=== PATIENT | female | born 1945 | race Caucasian/White ===

== ENCOUNTER 2016-06-04 07:08 | Emergency (ER) | payer MEDICARE ==
[~2016-06-04] VITALS: Ht 167.6 cm; Wt 63.5 kg
[2016-06-04 07:08] VITALS: BP 126/79; PULSE 90; RESP 19; TEMP 97.3; O2SAT 92
[2016-06-04] MEDS ORDERED: NACL 0.9% 1,000 ML IV ONE (07:15)
[2016-06-04] MEDS ORDERED: CALC260T7 PO (07:28)
[2016-06-04] MEDS ORDERED: DIVA500T7 PO (07:28)
[2016-06-04] MEDS ORDERED: LIPA1CAP13 PO (07:28)
[2016-06-04] MEDS ORDERED: CLON2TAB4 PO (07:28)
[2016-06-04] MEDS ORDERED: LEVO75TA7 PO (07:28)
[2016-06-04] MEDS ORDERED: CYAN100067 PO (07:28)
[2016-06-04] MEDS ORDERED: GABA-531 PO (07:28)
[2016-06-04] MEDS ORDERED: ALEN10TA6 PO (07:28)
[2016-06-04] MEDS ORDERED: SER100 PO (07:28)
[2016-06-04] MEDS ORDERED: RIFA550T5 PO (07:33)
[2016-06-04 08:02] LABS: BASOPHILS # (AUTO) 0.4 K/uL (0.0-0.2); BASOPHILS % (AUTO) 4.8 % (0.0-2.0); EOSINOPHILS % (AUTO) 0.3 % (0.0-4.0); HEMATOCRIT 44.3 % (36-48); HEMOGLOBIN 14.7 g/dL (12.0-16.0); LYMPHOCYTES # (AUTO) 1.5 K/uL (1.0-5.5); LYMPHOCYTES % (AUTO) 19.4 % (20.5-51.5); MEAN CORPUSCULAR HEMOGLOBIN 29 pg (27-31); MEAN CORPUSCULAR HGB CONC 33 % (32-36); MEAN CORPUSCULAR VOLUME 89 fL (79.0-98.0); MONOCYTES # (AUTO) 1.3 K/uL (0.0-1.0); MONOCYTES % (AUTO) 16.2 % (1.7-9.3); NEUTROPHILS # (AUTO) 4.6 K/uL (1.8-7.7); NEUTROPHILS % (AUTO) 59.3 % (40.0-70.0); PLATELET COUNT (AUTO) 132 K/uL (130-430); RED CELL DISTRIBUTION WIDTH 14.4 % (9.0-15.0); WHITE BLOOD COUNT (AUTO) 7.8 K/uL (4.8-10.8)
[2016-06-04 08:07] LABS: CALCIUM 9.3 mg/dL (8.4-11.0); CREATININE 0.95 mg/dL (0.55-1.30); POTASSIUM 4.1 mmol/L (3.5-5.1)
[2016-06-04 08:11] LABS: PROTHROMBIN TIME 10.8 SECS (9.5-12.5)
[2016-06-04 08:12] LABS: ALBUMIN 3.7 g/dL (3.4-4.8); TOTAL BILIRUBIN 0.3 mg/dL (0.0-1.0); TOTAL PROTEIN, SERUM 7.2 g/dL (6.4-8.3)
[2016-06-04 08:27] LABS: BILIRUBIN,URINE NEGATIVE (NEGATIVE); BLOOD, URINE NEGATIVE (NEGATIVE); CLARITY/URINE CLEAR (CLEAR); COLOR,URINE YELLOW (YELLOW); GLUCOSE,URINE NEGATIVE (NEGATIVE); KETONES,URINE 1+ (NEGATIVE); LEUKOCYTE ESTERASE ,URINE NEGATIVE (NEGATIVE); NITRITE, URINE NEGATIVE (NEGATIVE); PROTEIN URINE NEGATIVE (NEGATIVE); UROBILINOGEN,URINE 0.2 (0.2-1.0)
[2016-06-04 08:45] LABS: BARBITURATE, URINE NEGATIVE (NEG <=200); BENZODIAZEPINE, URINE POSITIVE (NEG <=150); CANNABINOID, URINE NEGATIVE (NEG <=50); COCAINE, URINE NEGATIVE (NEG <=150); METHAMPHETAMINES SCREEN,URINE NEGATIVE (NEG <=500); OPIATE, URINE NEGATIVE (NEG <=100); PHENCYCLIDINE SCREEN,URINE NEGATIVE (NEG <=25); UR TRICYCLIC ANTIDEPRESSANTS NEGATIVE (NEG <=300); URINE AMPHETAMINE NEGATIVE (NEG <=500); URINE METHADONE NEGATIVE (NEG <=200); URINE OXYCODONE SCREEN NEGATIVE (NEG <=100); URINE PROPOXYPHENE SCREEN NEGATIVE (NEG <=300)
[2016-06-04] MEDS ORDERED: DEXTROSE 50% JECT 50 ML DISP.SYRIN IVP ONE (09:45)
[2016-06-04] MEDS ORDERED: D5/0.45 NS 1,000 ML IV ONE (10:00)
[2016-06-04 11:10] VITALS: BP 119/64; PULSE 88; RESP 14; TEMP 97.1; O2SAT 100
== END 2016-06-04 11:10 | disposition short-term general hospital (02) ==
LOC: SED 07:08
DX: T42.4X1A Poisoning by benzodiazepines, accidental (unintentional), initial encounter (principal); T42.6X1A Poisoning by other antiepileptic and sedative-hypnotic drugs, accidental (unintentional), initial encounter; T43.591A Poisoning by other antipsychotics and neuroleptics, accidental (unintentional), initial encounter; R41.82 Altered mental status, unspecified; Z88.6 Allergy status to analgesic agent; Z88.5 Allergy status to narcotic agent; Z88.8 Allergy status to other drugs, medicaments and biological substances; Y92.89 Other specified places as the place of occurrence of the external cause
CPT/HCPCS: 36415; 51702; 70450; 71010; 80053; 80307; 81003; 82962; 84484; 85025; 85610; 85730; 93005; 96361; 96374; 99285; J7030

== ENCOUNTER 2016-06-08 00:14 | Emergency (ER) | payer MEDICARE ==
[~2016-06-08] VITALS: Ht 165.1 cm; Wt 59.0 kg
[~2016-06-08 00:14] MED LIST: ALEN10TA6 PO; CALC260T7 PO; CLON2TAB4 PO; CYAN100067 PO; DIVA500T7 PO; GABA-531 PO; LEVO75TA7 PO; LIPA1CAP13 PO; RIFA550T5 PO; SER100 PO
[2016-06-08 00:32] VITALS: BP 127/75; PULSE 83; RESP 18; TEMP 97.6; O2SAT 98
--- NOTE | 2016-06-08 00:32 | NUR ---
Patient to ER bed 04 to gown for evaluation. Side rails up. Report given to GLORIA.
--- NOTE | 2016-06-08 00:45 | NUR ---
pt in bed 4 with c/o neck pain s/p fall Dr Hinton aware.
--- NOTE | 2016-06-08 00:46 | NUR ---
ER at bedside examining patient.
--- NOTE | 2016-06-08 01:30 | NUR ---
PT OUT OF BED , CONFUSED ,REDIRECTED BACK TO BED. DR DESAI AWARE.
--- NOTE | 2016-06-08 01:43 | NUR ---
Patient transported to radiology via GURNEY, accompanied by [employer] OPERATIONS INTELLIGENCE OFFICER.
--- NOTE | 2016-06-08 01:54 | NUR ---
Returned from radiology, back to [facility].
--- NOTE | 2016-06-08 03:00 | NUR ---
PT PLACED IN BED 1. RESTING COMFORTABLY. AWAITING TRANSPORT FROM [place].
--- NOTE | 2016-06-08 04:11 | NUR ---
Patient resting quietly. No acute distress noted. Vital signs within normal range.
[2016-06-08 04:56] VITALS: BP 123/72; PULSE 78; RESP 18; TEMP 97.6; O2SAT 98
--- NOTE | 2016-06-08 04:57 | NUR ---
Patient'S CAREGIVERS given written and verbal discharge instructions and verbalizes understanding. ER MD discussed with patient the results and treatment provided. Given copies of tests performed in ER. Patient in stable condition. ID arm band removed. . NO Rx given. Patient educated on pain management and to follow up with PMD. Pain Scale 0/10. Opportunity for questions provided and answered.
--- NOTE | 2016-06-08 04:57 | NUR ---
CALLED [facility],INFORMED STAFF THAT PT IS MEDICALLY CLEARED, BUT IS A FALL RISK, DUE TO A VERY UNSTEADY GAIT. ALSO NOTED IN PT'S DISCHARGE INSTRUCTIONS.
== END 2016-06-08 04:56 | disposition home or self-care (01) ==
LOC: SED 00:14
DX: S16.1XXA Strain of muscle, fascia and tendon at neck level, initial encounter (principal); F03.90 Unspecified dementia, unspecified severity, without behavioral disturbance, psychotic disturbance, mood disturbance, and anxiety; Z88.6 Allergy status to analgesic agent; Z88.5 Allergy status to narcotic agent; Z88.1 Allergy status to other antibiotic agents; Z88.8 Allergy status to other drugs, medicaments and biological substances; W01.0XXA Fall on same level from slipping, tripping and stumbling without subsequent striking against object, initial encounter; Y93.E1 Activity, personal bathing and showering; Y99.8 Other external cause status; Y92.89 Other specified places as the place of occurrence of the external cause
CPT/HCPCS: 72125-TC; 99284

== ENCOUNTER 2016-07-18 11:08 | Emergency (ER) | payer MEDICARE ==
[~2016-07-18] VITALS: Ht 160 cm; Wt 58.1 kg
[2016-07-18 11:18] VITALS: BP 151/76; PULSE 78; RESP 20; TEMP 97.3; O2SAT 98
--- NOTE | 2016-07-18 11:21 | NUR ---
Patient to ER bed 06 to gown for evaluation. Side rails up.
--- NOTE | 2016-07-18 11:25 | NUR ---
Pt bib EMS s/p mech fall at home. Pt lives at [facility] assisted living. Pt denies syncope,head or neck injury. Pt AAOx4 h/o thyroid and knee sx.Pt's ankle's stablized w/ air splint prior to arrival.
--- NOTE | 2016-07-18 11:26 | NUR ---
ER at bedside examining patient.
[2016-07-18] MEDS ORDERED: IBUPROFEN 600 MG TABLET PO ONE (11:30)
--- NOTE | 2016-07-18 11:35 | NUR ---
Pt tolerated medication well. Continuing to monitor.
[2016-07-18] MEDS ORDERED: MORPHINE 4 MG/ML INJ. SYRINGE IM ONE (11:45)
[2016-07-18] MEDS ORDERED: ONDANSETRON 4 MG ODT TAB PO ONE (11:45)
--- NOTE | 2016-07-18 12:25 | NUR ---
Pt assisted with use of bedpan.Specimen collected.
--- NOTE | 2016-07-18 13:00 | NUR ---
Terry contacted to discuss pt transfer.
[2016-07-18 13:15] LABS: BASOPHILS % (AUTO) 0.6 % (0.0-2.0); EOSINOPHILS # (AUTO) 0.1 K/uL (0.0-0.4); EOSINOPHILS % (AUTO) 2.1 % (0.0-4.0); HEMATOCRIT 34.7 % (36-48); HEMOGLOBIN 12.2 g/dL (12.0-16.0); LYMPHOCYTES # (AUTO) 2.2 K/uL (1.0-5.5); LYMPHOCYTES % (AUTO) 37.2 % (20.5-51.5); MEAN CORPUSCULAR HEMOGLOBIN 30 pg (27-31); MEAN CORPUSCULAR HGB CONC 35 % (32-36); MEAN CORPUSCULAR VOLUME 86 fL (79.0-98.0); MONOCYTES # (AUTO) 0.6 K/uL (0.0-1.0); MONOCYTES % (AUTO) 10.3 % (1.7-9.3); NEUTROPHILS # (AUTO) 3.1 K/uL (1.8-7.7); NEUTROPHILS % (AUTO) 49.8 % (40.0-70.0); PLATELET COUNT (AUTO) 128 K/uL (130-430); RED BLOOD CELL COUNT(AUTO) 4.06 MIL/uL (4.2-6.2); RED CELL DISTRIBUTION WIDTH 14.1 % (9.0-15.0)
[2016-07-18] MEDS ORDERED: MORPHINE 4 MG/ML INJ. SYRINGE IVP ONE ×2 (13:15→16:00)
[2016-07-18 13:18] LABS: CALCIUM 8.6 mg/dL (8.4-11.0); CHLORIDE 102 mmol/L (98-107); CREATININE 0.87 mg/dL (0.55-1.30); GLUCOSE 91 mg/dL (70-99); POTASSIUM 4.4 mmol/L (3.5-5.1); SODIUM SERUM 135 mmol/L (136-145); UREA NITROGEN, BLOOD 18 mg/dL (8-21)
[2016-07-18 13:21] LABS: GFR AFRICAN AMERICAN 83 mL/min (>90)
[2016-07-18 13:22] LABS: ANION GAP < 3 (5-15)
[2016-07-18 13:23] LABS: ALANINE AMINOTRANSFERASE 77 U/L (12-78); ASPARTATE AMINOTRANSFERASE 216 U/L (10-37); TOTAL BILIRUBIN 0.4 mg/dL (0.0-1.0)
[2016-07-18 13:25] LABS: PROTHROMBIN TIME 11.1 SECS (9.5-12.5)
--- NOTE | 2016-07-18 13:30 | NUR ---
Pt tolerated bilateral splinting , pain medication given
--- NOTE | 2016-07-18 14:30 | NUR ---
Pt assisted w/ use of bedpan. Pt to inform RN of pain. pT verbalized understanding. Pt positioned for comfort.
--- NOTE | 2016-07-18 15:32 | NUR ---
ACCEPTING FACILITY:[facility] ACCEPTING DOCTOR: SABINA CHAVEZ REPORT NUMBER:
--- NOTE | 2016-07-18 15:36 | NUR ---
ETA:[id number]
--- NOTE | 2016-07-18 16:15 | NUR ---
Pt medicated for pain. Pain level reducing.
--- NOTE | 2016-07-18 16:18 | NUR ---
Patient to be transferred to [facility]. Is being transferred due to higher level of care. Receiving facility has accepting physician and available space. ER physician has signed transfer form. Patient or responsible libertarian has agreed to transfer and signed form. Patient belongings inventoried and will be sent with patient. Copy of nursing notes, lab reports, EKG, Physicians Orders and X-rays to be sent with patient. Report called to [facility] at receiving facility. Receiving physician is . [facility] ambulance service has been called for transfer. ETA is 1620.
--- NOTE | 2016-07-18 16:21 | NUR ---
[facility] at bedside for transport.
[2016-07-18 16:30] VITALS: BP 146/79; PULSE 68; RESP 18; TEMP 97.4; O2SAT 97
== END 2016-07-18 16:30 | disposition short-term general hospital (02) ==
LOC: SED 11:08
DX: S82.831A Other fracture of upper and lower end of right fibula, initial encounter for closed fracture (principal); S93.402A Sprain of unspecified ligament of left ankle, initial encounter; Z88.6 Allergy status to analgesic agent; Z88.5 Allergy status to narcotic agent; Z88.1 Allergy status to other antibiotic agents; Z88.8 Allergy status to other drugs, medicaments and biological substances; Z90.49 Acquired absence of other specified parts of digestive tract; Z90.710 Acquired absence of both cervix and uterus; X50.1XXA Overexertion from prolonged static or awkward postures, initial encounter; Y93.89 Activity, other specified; Y99.8 Other external cause status; Y92.89 Other specified places as the place of occurrence of the external cause
CPT/HCPCS: 29515; 36415; 73610; 80053; 85025; 85610; 85730; 93005; 96372; 96374; 96376; 99285; J2270; J7030; Q0162

== ENCOUNTER 2018-05-19 00:04 | Emergency (ER) | payer MEDICARE ==
[~2018-05-19] VITALS: Ht 154.9 cm; Wt 68.0 kg
[~2018-05-19 00:04] MED LIST changes: +CLON2TAB11 PO; -CLON2TAB4 PO; +CYAN100010 PO; -CYAN100067 PO
[2018-05-19 00:05] VITALS: BP_SYST 138
[2018-05-19] MEDS ORDERED: GABA-531 PO (00:25)
[2018-05-19] MEDS ORDERED: MELA3TAB PO (00:25)
[2018-05-19] MEDS ORDERED: PREMVAG VG (00:25)
[2018-05-19] MEDS ORDERED: CARB10DR OP (00:25)
[2018-05-19] MEDS ORDERED: OLAN15TA3 PO (00:25)
[2018-05-19] MEDS ORDERED: ACET325T53 PO (00:25)
[2018-05-19] MEDS ORDERED: TRAZ-126 PO (00:25)
[2018-05-19] MEDS ORDERED: DEPL250/5 PO ×2 (00:25)
[2018-05-19] MEDS ORDERED: MULT-1159 PO (00:25)
[2018-05-19] MEDS ORDERED: OLAN5TAB3 PO (00:25)
[2018-05-19 00:42] LABS: BASOPHILS # (AUTO) 0.1 K/uL (0.0-0.2); BASOPHILS % (AUTO) 0.7 % (0.0-2.0); EOSINOPHILS # (AUTO) 0.2 K/uL (0.0-0.4); EOSINOPHILS % (AUTO) 2.8 % (0.0-4.0); HEMATOCRIT 37.7 % (36-48); HEMOGLOBIN 12.5 g/dL (12.0-16.0); LYMPHOCYTES # (AUTO) 3.3 K/uL (1.0-5.5); LYMPHOCYTES % (AUTO) 41.7 % (20.5-51.5); MEAN CORPUSCULAR HEMOGLOBIN 29 pg (27-31); MEAN CORPUSCULAR HGB CONC 33 % (32-36); MEAN CORPUSCULAR VOLUME 89 fL (79.0-98.0); MONOCYTES # (AUTO) 0.7 K/uL (0.0-1.0); MONOCYTES % (AUTO) 9.3 % (1.7-9.3); NEUTROPHILS # (AUTO) 3.6 K/uL (1.8-7.7); NEUTROPHILS % (AUTO) 45.5 % (40.0-70.0); PLATELET COUNT (AUTO) 232 K/uL (130-430); RED BLOOD CELL COUNT(AUTO) 4.25 MIL/uL (4.2-6.2); RED CELL DISTRIBUTION WIDTH 13.4 % (9.0-15.0); WHITE BLOOD COUNT (AUTO) 7.9 K/uL (4.8-10.8)
[2018-05-19 00:49] LABS: ANION GAP 7 (5-15); CHLORIDE 99 mmol/L (98-107); CREATININE 0.92 mg/dL (0.55-1.30); GLUCOSE 82 mg/dL (70-99); SODIUM SERUM 133 mmol/L (136-145); UREA NITROGEN, BLOOD 9 mg/dL (8-21)
[2018-05-19 00:58] LABS: ALANINE AMINOTRANSFERASE 30 U/L (12-78); ALBUMIN 2.6 g/dL (3.4-4.8); ASPARTATE AMINOTRANSFERASE 21 U/L (10-37); TOTAL BILIRUBIN 0.2 mg/dL (0.0-1.0)
[2018-05-19 02:19] VITALS: BP_SYST 125
== END 2018-05-19 02:20 | disposition home or self-care (01) ==
LOC: SED 00:04
DX: S00.03XA Contusion of scalp, initial encounter (principal); E78.5 Hyperlipidemia, unspecified; R03.0 Elevated blood-pressure reading, without diagnosis of hypertension; Z88.5 Allergy status to narcotic agent; Z88.6 Allergy status to analgesic agent; Z88.8 Allergy status to other drugs, medicaments and biological substances; Z79.899 Other long term (current) drug therapy; W18.39XA Other fall on same level, initial encounter; Y93.89 Activity, other specified; Y92.89 Other specified places as the place of occurrence of the external cause; Y99.8 Other external cause status
CPT/HCPCS: 36415; 70450-TC; 80053; 84484; 85025; 93005; 99284

== ENCOUNTER 2019-05-20 13:02 | Emergency (ER) | payer MEDICARE ==
[~2019-05-20] VITALS: Ht 172.7 cm; Wt 90.7 kg
[~2019-05-20 13:02] MED LIST changes: +ACET325T53 PO; -ALEN10TA6 PO; +ALEN10TA7 PO; +CARB10DR OP; -CLON2TAB11 PO; -CYAN100010 PO; +DEPL250/5 PO; -DIVA500T7 PO; -LIPA1CAP13 PO; +MELA3TAB64 PO; +MULT-1159 PO; +OLAN15TA3 PO; +OLAN5TAB3 PO; +PREMVAG VG; -RIFA550T5 PO; -SER100 PO; +TRAZ-219 PO
[2019-05-20 13:03] VITALS: BP_SYST 133
--- NOTE | 2019-05-20 13:03 | NUR ---
Patient to ER bed 1 to gown for evaluation. Patient placed in gown and placed on surveillance system monitor. Side rails up. Report given to ELIZABET ORO.
[2019-05-20] MEDS ORDERED: NACL 0.9% 1,000 ML IV ONE ×2 (13:05→14:30)
[2019-05-20] MEDS ORDERED: ASPIRIN 81 MG TAB.CHEW PO ONE (13:15)
[2019-05-20] MEDS ORDERED: NITROGLYCERIN 0.4 MG TAB.SUBL SL ONE (13:15)
--- NOTE | 2019-05-20 13:18 | NUR ---
PATIENT PRESENTS TO THE ER WITH HX OF SUDDEN ONSET OF STERNAL CHEST PAIN LASTING 45 MIN; 911 WAS CALLED AND PATIENT BROUGHT TO ER ACLS WITH SYMPTOMS RESOLVED UPON ADMISSION; NO TRAUMA, NO OTHER REMARKABLE S/S; ERMD EVALUATION AT 1315 AND PATIENT TO ER #1 AT 1310
--- NOTE | 2019-05-20 13:30 | NUR ---
PATIENT PLACED ON OXYGEN 2LM NC, IV ACCESS TO LEFT HAND #22 WITHOUT INCIDENT
--- NOTE | 2019-05-20 13:32 | NUR ---
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
[2019-05-20 13:37] LABS: BASOPHILS % (AUTO) 0.8 % (0.0-2.0); EOSINOPHILS # (AUTO) 0.2 K/uL (0.0-0.4); EOSINOPHILS % (AUTO) 2.7 % (0.0-4.0); HEMOGLOBIN 13.4 g/dL (12.0-16.0); LYMPHOCYTES # (AUTO) 2.4 K/uL (1.0-5.5); LYMPHOCYTES % (AUTO) 39.7 % (20.5-51.5); MEAN CORPUSCULAR HEMOGLOBIN 31 pg (27-31); MEAN CORPUSCULAR HGB CONC 34 % (32-36); MEAN CORPUSCULAR VOLUME 91 fL (79.0-98.0); MONOCYTES # (AUTO) 0.6 K/uL (0.0-1.0); MONOCYTES % (AUTO) 9.7 % (1.7-9.3); NEUTROPHILS # (AUTO) 2.8 K/uL (1.8-7.7); NEUTROPHILS % (AUTO) 47.1 % (40.0-70.0); PLATELET COUNT (AUTO) 162 K/uL (130-430); RED BLOOD CELL COUNT(AUTO) 4.41 MIL/uL (4.2-6.2); RED CELL DISTRIBUTION WIDTH 14.7 % (9.0-15.0); WHITE BLOOD COUNT (AUTO) 5.9 K/uL (4.8-10.8)
[2019-05-20 13:55] LABS: ANION GAP 5 (5-15); CALCIUM 8.6 mg/dL (8.4-11.0); CHLORIDE 103 mmol/L (98-107); CREATININE 1.06 mg/dL (0.55-1.30); GLUCOSE 114 mg/dL (70-99); SODIUM SERUM 135 mmol/L (136-145); UREA NITROGEN, BLOOD 15 mg/dL (8-21)
--- NOTE | 2019-05-20 14:00 | NUR ---
REASSESSMENT; PATIENT REMAINS SEDATE AND ASYMPTOMATIC; DISPOSITION PENDING
[2019-05-20 14:01] LABS: ALANINE AMINOTRANSFERASE 33 U/L (12-78); ALBUMIN 2.8 g/dL (3.4-4.8); AMYLASE 16 U/L (0-100); ASPARTATE AMINOTRANSFERASE 26 U/L (10-37); LIPASE 105 U/L (73-393); TOTAL BILIRUBIN 0.3 mg/dL (0.0-1.0)
[2019-05-20 14:09] LABS: PROTHROMBIN TIME 10.1 SECS (9.5-12.5)
[2019-05-20] MEDS ORDERED: cefTRIAXone 1 GM IVPB PREMIX 50 ML IV ONE (14:30)
--- NOTE | 2019-05-20 15:01 | NUR ---
REASSESSMENT; PATIENT REMAINS SEDATE AND ASYMPTOMATIC; DISPOSITION PENDING; IVF INFUSED 1000CC NORMAL SALINE
--- NOTE | 2019-05-20 15:40 | NUR ---
Spoke with Celia at [facility], no transport available today, she has no hazardous materials tanker driver. Advised to call patients family for a ride. 1524: Called son, Aris at [phone], states he is in [place]. Given number for his brother Susannah. Susannah is located in [place]. [phone]. 1525: Attempted call to Susannah, unable to reach. 1529: Attempted call to Susannah, unable to reach. 1538: Called and spoke with Aris, he will be here to pick her up within the hour. Patient made aware. ELIZABET Shaw is made aware.
--- NOTE | 2019-05-20 15:42 | NUR ---
REASSESSMENT BY ERMD; PREPARATIONS TO DISCHARGE PATIENT; FAMILY PHONED TO TRANSPORT WITH ETA OF ONE HOUR; PATIENT REMAINS SEDATE AND ASYMPTOMATIC; IVF INFUSION 500 ML INFUSED OF 1000 ML NORMAL SALINE SECOND LITER
[2019-05-20 15:45] LABS: BILIRUBIN,URINE NEGATIVE (NEGATIVE); BLOOD, URINE NEGATIVE (NEGATIVE); CLARITY/URINE SL CLOUDY (CLEAR); COLOR,URINE YELLOW (YELLOW); GLUCOSE,URINE NEGATIVE (NEGATIVE); KETONES,URINE NEGATIVE (NEGATIVE); LEUKOCYTE ESTERASE ,URINE 1+ (NEGATIVE); NITRITE, URINE POSITIVE (NEGATIVE); PROTEIN URINE NEGATIVE (NEGATIVE)
[2019-05-20 16:00] LABS: BACTERIA,URINE MANY /HPF (None Seen); RBC,URINE 0-3 /HPF (0-3)
[2019-05-20 16:01] LABS: MUCUS,URINE None Seen /LPF (None Seen)
[2019-05-20 16:12] VITALS: BP_SYST 143
--- NOTE | 2019-05-20 16:14 | NUR ---
REASSESSMENT BY ERMD; ACI GIVEN AND PATIENT INDICATED FULL UNDERSTANDING; SON HERE TO TRANSPORT PATIENT; IV OUT AND DRESSED AND PATIENT DISCHARGED AMBULATORY/ IMPROVED
== END 2019-05-20 16:14 | disposition home or self-care (01) ==
LOC: SED 13:02
DX: F41.9 Anxiety disorder, unspecified (principal); R07.89 Other chest pain; N39.0 Urinary tract infection, site not specified; E07.9 Disorder of thyroid, unspecified; E78.5 Hyperlipidemia, unspecified; Z88.6 Allergy status to analgesic agent; Z88.8 Allergy status to other drugs, medicaments and biological substances; Z79.899 Other long term (current) drug therapy; Z86.59 Personal history of other mental and behavioral disorders; Z90.710 Acquired absence of both cervix and uterus
CPT/HCPCS: 36415; 71045; 80053; 81000; 82150; 82550; 83605; 83690; 83880; 84484; 85025; 85610; 85730; 87040; 87086; 87186; 96365; 99284; J0696; J7030

== ENCOUNTER 2023-10-19 14:29 | Inpatient (IN) | payer MEDICARE ==
[~2023-10-19] VITALS: Ht 162.6 cm; Wt 54.4 kg
[2023-10-19] VITALS: BP_SYST 128; PULSE 65; RESP 16; TEMP 97.8; O2SAT 98
[2023-10-19 14:29] VITALS: BP_SYST 148; PULSE 78; RESP 19; TEMP 97.2; O2SAT 96
[~2023-10-19 14:29] MED LIST changes: +ALEN10TA25 PO; -ALEN10TA7 PO; +MELA3TAB41 PO; -MELA3TAB64 PO; -TRAZ-219 PO; +TRAZ-251 PO
[2023-10-19 15:48] LABS: BILIRUBIN,URINE NEGATIVE (NEGATIVE); BLOOD, URINE 2+ (NEGATIVE); CLARITY/URINE CLOUDY (CLEAR); COLOR,URINE YELLOW (YELLOW); GLUCOSE,URINE NEGATIVE (NEGATIVE); KETONES,URINE 1+ (NEGATIVE); LEUKOCYTE ESTERASE ,URINE 2+ (NEGATIVE); NITRITE, URINE POSITIVE (NEGATIVE); PROTEIN URINE NEGATIVE (NEGATIVE)
[2023-10-19 15:52] LABS: BLOOD GAS BASE EXCESS 0.8 mmol/L (-3.0-3.0); BLOOD GAS HCO3 25.9 mmol/L (21.0-27.0); BLOOD GAS PCO2 43.4 mmHg (35.0-45.0); BLOOD GAS PH 7.394 (7.350-7.450)
[2023-10-19 15:57] LABS: INR 1.2 (0.8-1.2); PROTHROMBIN TIME 12.1 SECS (9.5-12.5)
[2023-10-19 15:59] LABS: ABG O2 SAT% ESTIMATE 89.5 % (94.0-100.0); ALLEN'S TEST POSITIVE (P)
[2023-10-19 16:03] LABS: INFLUENZA TYPE A NEGATIVE (NEGATIVE); INFLUENZA TYPE B NEGATIVE (NEGATIVE)
[2023-10-19 16:06] LABS: ALANINE AMINOTRANSFERASE 26 U/L (12-78); ALBUMIN 2.1 g/dL (3.4-4.8); ANION GAP 11 (5-15); ASPARTATE AMINOTRANSFERASE 69 U/L (10-37); BASOPHILS % (AUTO) 0.6 % (0.0-2.0); BILIRUBIN,DIRECT 0.3 mg/dL (0.0-0.3); CARBON DIOXIDE 25 mmol/L (23-29); CHLORIDE 105 mmol/L (98-107); CREATININE 0.97 mg/dL (0.55-1.30); EOSINOPHILS % (AUTO) 0.7 % (0.0-4.0); GLUCOSE 64 mg/dL (74-106); HEMATOCRIT 40.1 % (36-48); HEMOGLOBIN 13.6 g/dL (12.0-16.0); LIPASE 13 U/L (16-77); LYMPHOCYTES # (AUTO) 1.7 K/uL (1.0-5.5); LYMPHOCYTES % (AUTO) 39.1 % (20.5-51.5); MEAN CORPUSCULAR HEMOGLOBIN 31 pg (27-31); MEAN CORPUSCULAR HGB CONC 34 % (32-36); MEAN CORPUSCULAR VOLUME 91 fL (79.0-98.0); MONOCYTES # (AUTO) 0.6 K/uL (0.0-1.0); NEUTROPHILS # (AUTO) 1.9 K/uL (1.8-7.7); NEUTROPHILS % (AUTO) 44.6 % (40.0-70.0); RED BLOOD CELL COUNT(AUTO) 4.39 MIL/uL (4.2-6.2); SODIUM SERUM 141 mmol/L (136-145); TOTAL BILIRUBIN 0.7 mg/dL (0.0-1.0); TOTAL PROTEIN, SERUM 5.7 g/dL (6.4-8.3); UREA NITROGEN, BLOOD 20 mg/dL (8-21); WHITE BLOOD COUNT (AUTO) 4.2 K/uL (4.8-10.8)
[2023-10-19 16:07] LABS: PLATELET COUNT (AUTO) 59 K/uL (130-430)
[2023-10-19] MEDS: NS 1000 ML IV.SOLN IV ONE (16:19)
[2023-10-19 16:20] LABS: BACTERIA,URINE MANY /HPF (None Seen); MUCUS,URINE None Seen /LPF (None Seen); WBC,URINE 80-100 /HPF (0-3)
[2023-10-19] MEDS ORDERED: SERT-436 PO (16:47)
[2023-10-19] MEDS ORDERED: MIRT-91 PO (16:47)
[2023-10-19] MEDS ORDERED: DONE10TA44 PO (16:47)
[2023-10-19] MEDS ORDERED: VITD2000 PO (16:47)
[2023-10-19] MEDS ORDERED: AMLO5TAB92 PO (16:47)
[2023-10-19] MEDS ORDERED: LIPA1CAP26 PO (16:47)
[2023-10-19] MEDS ORDERED: DIVA-74 PO ×2 (16:47)
[2023-10-19] MEDS: DEXTROSE 50% JECT 50 ML DISP.SYRIN IVP ONE (17:54)
[2023-10-19] MEDS ORDERED: MAGNESIUM SULFATE 50 ML IV PRN (19:15)
[2023-10-19] MEDS ORDERED: ZOLPIDEM TARTRATE 5 MG TABLET PO PRN (19:15)
[2023-10-19] MEDS ORDERED: LORazepam 2 MG/ML VIAL IVP PRN (19:15)
[2023-10-19] MEDS ORDERED: MUPIROCIN 2% TOPICAL OINTMENT 22 GM NS PRN (19:15)
[2023-10-19] MEDS ORDERED: ONDANSETRON HCL 4 MG/2 ML VIAL IVP PRN (19:15)
[2023-10-19] MEDS ORDERED: DOCUSATE SODIUM 100 MG CAPSULE PO PRN (19:15)
[2023-10-19] MEDS ORDERED: POTASSIUM CHLORIDE 20 MEQ TABLET.ER PO PRN (19:15)
[2023-10-19 19:48] LABS: THYROID STIMULATING HORMONE 0.09 uIu/mL (0.34-4.82)
[2023-10-19 21:00] VITALS: BP_SYST 136; PULSE 63; RESP 18; TEMP 97.2; O2SAT 98
[2023-10-19] MEDS: NACL 0.9% 1,000 ML IV SCH (21:14)
[2023-10-19] MEDS: OLANZapine 5 MG TABLET PO SCH (21:14)
[2023-10-19] MEDS: GABAPENTIN 300 MG CAPSULE PO SCH (21:15)
[2023-10-19] MEDS: DIVALPROEX SODIUM 500 MG TABLET( DEPAKOTE) PO SCH (21:15)
[2023-10-19] MEDS: MELATONIN 3 MG TABLET PO SCH (21:15)
[2023-10-19] MEDS: PIPERACILLIN/TAZO 3.375 GM in D5W 50 ML IV SCH (21:16)
[2023-10-19] MEDS: HEPARIN SODIUM,PORCINE 5,000 UNITS/ML VIAL SUBCUT SCH (21:18)
[2023-10-20] VITALS (7 sets, daily range): BP systolic 93–127; PULSE 61–98; RESP 18; TEMP 97.5–98.1; O2SAT 94–100
[2023-10-20 05:08] LABS: BASOPHILS % (AUTO) 0.4 % (0.0-2.0); EOSINOPHILS % (AUTO) 0.5 % (0.0-4.0); HEMATOCRIT 39.9 % (36-48); HEMOGLOBIN 13.3 g/dL (12.0-16.0); LYMPHOCYTES # (AUTO) 1.6 K/uL (1.0-5.5); LYMPHOCYTES % (AUTO) 43.4 % (20.5-51.5); MEAN CORPUSCULAR HEMOGLOBIN 31 pg (27-31); MEAN CORPUSCULAR HGB CONC 33 % (32-36); MEAN CORPUSCULAR VOLUME 94 fL (79.0-98.0); MONOCYTES # (AUTO) 0.6 K/uL (0.0-1.0); MONOCYTES % (AUTO) 17.6 % (1.7-9.3); NEUTROPHILS # (AUTO) 1.4 K/uL (1.8-7.7); NEUTROPHILS % (AUTO) 38.1 % (40.0-70.0); PLATELET COUNT (AUTO) 57 K/uL (130-430); RED BLOOD CELL COUNT(AUTO) 4.26 MIL/uL (4.2-6.2); RED CELL DISTRIBUTION WIDTH 18.1 % (9.0-15.0); WHITE BLOOD COUNT (AUTO) 3.7 K/uL (4.8-10.8)
[2023-10-20 05:10] LABS: ANION GAP 6 (5-15); CALCIUM 8.5 mg/dL (8.4-11.0); CARBON DIOXIDE 31 mmol/L (23-29); CHLORIDE 105 mmol/L (98-107); CREATININE 0.89 mg/dL (0.55-1.30); GLUCOSE 75 mg/dL (74-106); POTASSIUM 3.9 mmol/L (3.5-5.1); SODIUM SERUM 142 mmol/L (136-145); UREA NITROGEN, BLOOD 12 mg/dL (8-21)
[2023-10-20] MEDS ORDERED: amLODIPine BESYLATE 5 MG TABLET PO SCH (09:00)
[2023-10-20] MEDS: CHOLECALCIFEROL (VITAMIN D3) 2,000 UNIT TABLET PO SCH (09:40)
[2023-10-20] MEDS: SERTRALINE HCL 50 MG TABLET PO SCH (09:40)
[2023-10-20] MEDS: DIVALPROEX SODIUM 500 MG TABLET( DEPAKOTE) PO SCH (09:41)
[2023-10-20] MEDS: CALCIUM 500 MG/TAB PO SCH (09:43)
[2023-10-20] MEDS: MIRTAZAPINE 15 MG TABLET PO SCH (09:43)
[2023-10-20] MEDS: DONEPEZIL HCL 5 MG TABLET (ARICEPT) PO SCH (09:44)
[2023-10-20] MEDS: LIPASE/PROTEASE/AMYLASE 1 CAP PO SCH (18:00)
[2023-10-21] VITALS (9 sets, daily range): BP systolic 92–131; PULSE 80–92; RESP 16–22; TEMP 96.5–98.3; O2SAT 84–98
[2023-10-21] MEDS: LEVOTHYROXINE SODIUM 0.075 MG TABLET PO SCH (06:03)
[2023-10-21 09:29] LABS: BASOPHILS % (AUTO) 0.2 % (0.0-2.0); HEMATOCRIT 39.2 % (36-48); LYMPHOCYTES # (AUTO) 1.5 K/uL (1.0-5.5); LYMPHOCYTES % (AUTO) 23.6 % (20.5-51.5); MEAN CORPUSCULAR HEMOGLOBIN 31 pg (27-31); MEAN CORPUSCULAR HGB CONC 33 % (32-36); MEAN CORPUSCULAR VOLUME 93 fL (79.0-98.0); MONOCYTES # (AUTO) 1.5 K/uL (0.0-1.0); MONOCYTES % (AUTO) 23.8 % (1.7-9.3); NEUTROPHILS # (AUTO) 3.3 K/uL (1.8-7.7); NEUTROPHILS % (AUTO) 52.4 % (40.0-70.0); PLATELET COUNT (AUTO) 53 K/uL (130-430); RED BLOOD CELL COUNT(AUTO) 4.23 MIL/uL (4.2-6.2); RED CELL DISTRIBUTION WIDTH 17.8 % (9.0-15.0); WHITE BLOOD COUNT (AUTO) 6.4 K/uL (4.8-10.8)
[2023-10-21 09:45] LABS: ANION GAP 5 (5-15); CALCIUM 8.8 mg/dL (8.4-11.0); CARBON DIOXIDE 30 mmol/L (23-29); CHLORIDE 108 mmol/L (98-107); CREATININE 1.28 mg/dL (0.55-1.30); FREE T4 (FREE THYROXINE) 0.7 ng/dL (0.6-1.6); GLUCOSE 105 mg/dL (74-106); POTASSIUM 3.7 mmol/L (3.5-5.1); SODIUM SERUM 143 mmol/L (136-145); UREA NITROGEN, BLOOD 20 mg/dL (8-21)
[2023-10-21] MEDS: MIDODRINE HCL 5 MG TABLET (PROAMATINE) PO ONE (16:55)
[2023-10-21] MEDS: MIDODRINE HCL 5 MG TABLET (PROAMATINE) PO SCH (21:27)
[2023-10-22] VITALS (11 sets, daily range): BP systolic 116–137; PULSE 93–111; RESP 16–18; TEMP 97.2–98.6; O2SAT 90–99
[2023-10-22 05:29] LABS: BASOPHILS % (AUTO) 0.3 % (0.0-2.0); EOSINOPHILS % (AUTO) 0.1 % (0.0-4.0); HEMATOCRIT 41.4 % (36-48); HEMOGLOBIN 13.6 g/dL (12.0-16.0); LYMPHOCYTES # (AUTO) 1.9 K/uL (1.0-5.5); LYMPHOCYTES % (AUTO) 25.9 % (20.5-51.5); MEAN CORPUSCULAR HEMOGLOBIN 31 pg (27-31); MEAN CORPUSCULAR HGB CONC 33 % (32-36); MEAN CORPUSCULAR VOLUME 95 fL (79.0-98.0); MONOCYTES # (AUTO) 0.8 K/uL (0.0-1.0); NEUTROPHILS # (AUTO) 4.6 K/uL (1.8-7.7); NEUTROPHILS % (AUTO) 62.7 % (40.0-70.0); PLATELET COUNT (AUTO) 70 K/uL (130-430); RED BLOOD CELL COUNT(AUTO) 4.37 MIL/uL (4.2-6.2); RED CELL DISTRIBUTION WIDTH 17.9 % (9.0-15.0); WHITE BLOOD COUNT (AUTO) 7.3 K/uL (4.8-10.8)
[2023-10-22 05:30] LABS: ANION GAP 4 (5-15); CALCIUM 9.7 mg/dL (8.4-11.0); CARBON DIOXIDE 32 mmol/L (23-29); CHLORIDE 107 mmol/L (98-107); CREATININE 1.15 mg/dL (0.55-1.30); GLUCOSE 88 mg/dL (74-106); POTASSIUM 3.9 mmol/L (3.5-5.1); SODIUM SERUM 143 mmol/L (136-145); UREA NITROGEN, BLOOD 25 mg/dL (8-21)
[2023-10-22] MEDS: IPRATROPIUM/ALBUTEROL SULFATE 3 ML AMPUL.NEB (DUONEB) INH PRN (06:47)
[2023-10-22 15:54] LABS: ABG O2 SAT% ESTIMATE 96.3 % (94.0-100.0); BLOOD GAS BASE EXCESS 2.6 mmol/L (-3.0-3.0); BLOOD GAS PH 7.386 (7.350-7.450); BLOOD GAS PO2 86.1 mmHg (75.0-100.0)
[2023-10-22 16:08] LABS: ALLEN'S TEST POSITIVE (P); BLOOD GAS HCO3 28.4 mmol/L (21.0-27.0); BLOOD GAS PCO2 48.4 mmHg (35.0-45.0)
[2023-10-22] MEDS: VANCOMYCIN HCL 750 MG in NS 250 ML IV SCH (17:13)
[2023-10-22] MEDS: D5NS 1,000 ML IV SCH (17:13)
[2023-10-23] VITALS (11 sets, daily range): BP systolic 132–144; PULSE 71–92; RESP 16–17; TEMP 97.3–98.4; O2SAT 94–99
[2023-10-23 06:53] LABS: BASOPHILS % (AUTO) 0.3 % (0.0-2.0); HEMATOCRIT 38.8 % (36-48); HEMOGLOBIN 12.7 g/dL (12.0-16.0); LYMPHOCYTES # (AUTO) 1.3 K/uL (1.0-5.5); LYMPHOCYTES % (AUTO) 18.8 % (20.5-51.5); MEAN CORPUSCULAR HEMOGLOBIN 31 pg (27-31); MEAN CORPUSCULAR HGB CONC 33 % (32-36); MEAN CORPUSCULAR VOLUME 93 fL (79.0-98.0); MONOCYTES # (AUTO) 0.5 K/uL (0.0-1.0); MONOCYTES % (AUTO) 7.4 % (1.7-9.3); NEUTROPHILS # (AUTO) 5.2 K/uL (1.8-7.7); NEUTROPHILS % (AUTO) 73.5 % (40.0-70.0); PLATELET COUNT (AUTO) 73 K/uL (130-430); RED BLOOD CELL COUNT(AUTO) 4.16 MIL/uL (4.2-6.2); RED CELL DISTRIBUTION WIDTH 18.1 % (9.0-15.0)
[2023-10-23 06:59] LABS: ANION GAP 3 (5-15); CALCIUM 10.1 mg/dL (8.4-11.0); CARBON DIOXIDE 32 mmol/L (23-29); CHLORIDE 111 mmol/L (98-107); CREATININE 1.12 mg/dL (0.55-1.30); GLUCOSE 109 mg/dL (74-106); POTASSIUM 3.5 mmol/L (3.5-5.1); SODIUM SERUM 146 mmol/L (136-145); UREA NITROGEN, BLOOD 29 mg/dL (8-21)
[2023-10-23] MEDS: D5NS 1,000 ML IV SCH (12:24)
[2023-10-23] MEDS: IPRATROPIUM/ALBUTEROL SULFATE 3 ML AMPUL.NEB (DUONEB) INH PRN (15:11)
[2023-10-23] MEDS: cefTRIAXone 1 GM in D5W 50 ML IV ONE (16:35)
[2023-10-23] MEDS: IPRATROPIUM/ALBUTEROL SULFATE 3 ML AMPUL.NEB (DUONEB) INH SCH (20:41)
[2023-10-23] MEDS: DIVALPROEX SODIUM 500 MG TABLET( DEPAKOTE) PO SCH (21:00)
[2023-10-24] VITALS (13 sets, daily range): BP systolic 123–156; PULSE 69–111; RESP 14–18; TEMP 97.1–98.6; O2SAT 94–98
[2023-10-24 07:15] LABS: BASOPHILS % (AUTO) 0.3 % (0.0-2.0); EOSINOPHILS % (AUTO) 0.3 % (0.0-4.0); HEMATOCRIT 36.1 % (36-48); LYMPHOCYTES # (AUTO) 1.4 K/uL (1.0-5.5); LYMPHOCYTES % (AUTO) 27.5 % (20.5-51.5); MEAN CORPUSCULAR HEMOGLOBIN 31 pg (27-31); MEAN CORPUSCULAR HGB CONC 33 % (32-36); MEAN CORPUSCULAR VOLUME 93 fL (79.0-98.0); MONOCYTES # (AUTO) 0.5 K/uL (0.0-1.0); MONOCYTES % (AUTO) 10.3 % (1.7-9.3); NEUTROPHILS # (AUTO) 3.2 K/uL (1.8-7.7); NEUTROPHILS % (AUTO) 61.6 % (40.0-70.0); PLATELET COUNT (AUTO) 87 K/uL (130-430); RED BLOOD CELL COUNT(AUTO) 3.89 MIL/uL (4.2-6.2); RED CELL DISTRIBUTION WIDTH 17.4 % (9.0-15.0); WHITE BLOOD COUNT (AUTO) 5.2 K/uL (4.8-10.8)
[2023-10-24 07:39] LABS: ANION GAP 0 (5-15); CALCIUM 9.9 mg/dL (8.4-11.0); CARBON DIOXIDE 34 mmol/L (23-29); CHLORIDE 113 mmol/L (98-107); CREATININE 0.88 mg/dL (0.55-1.30); GLUCOSE 96 mg/dL (74-106); POTASSIUM 3.3 mmol/L (3.5-5.1); SODIUM SERUM 147 mmol/L (136-145); UREA NITROGEN, BLOOD 21 mg/dL (8-21)
[2023-10-24 09:02] LABS: VALPROIC ACID 51 ug/mL (50-100)
[2023-10-24] MEDS: cefTRIAXone 1 GM in D5W 50 ML IV SCH (09:33)
[2023-10-24] MEDS: POTASSIUM CHLORIDE 40 MEQ, LIDOCAINE JECT 2% PF 100 MG 50 MG in NS 250 ML IV ONE (11:28)
[2023-10-24] MEDS ORDERED: METOPROLOL TARTRATE 5 MG/5 ML VIAL IVP PRN (16:00)
[2023-10-24] MEDS: METOPROLOL TARTRATE 5 MG/5 ML VIAL IVP ONE (16:09)
[2023-10-25] VITALS (10 sets, daily range): BP systolic 132–150; PULSE 69–73; RESP 16–18; TEMP 96.5–98.5; O2SAT 93–99
[2023-10-25] MEDS ORDERED: LEVO-62 PO (08:47)
[2023-10-25] MEDS ORDERED: ALBMDI INH (08:48)
[2023-10-25] MEDS: METOPROLOL TARTRATE 25 MG TABLET PO SCH (09:00)
[2023-10-25] MEDS: POTASSIUM CHLORIDE 40 MEQ, LIDOCAINE JECT 2% PF 100 MG 50 MG in NS 250 ML IV ONE (18:33)
[2023-10-26] VITALS (12 sets, daily range): BP systolic 120–153; PULSE 57–83; RESP 12–17; TEMP 96.1–97; O2SAT 88–98
[2023-10-26 04:44] LABS: BASOPHILS % (AUTO) 0.5 % (0.0-2.0); EOSINOPHILS # (AUTO) 0.1 K/uL (0.0-0.4); EOSINOPHILS % (AUTO) 1.7 % (0.0-4.0); HEMOGLOBIN 12.7 g/dL (12.0-16.0); LYMPHOCYTES # (AUTO) 2.1 K/uL (1.0-5.5); LYMPHOCYTES % (AUTO) 34.7 % (20.5-51.5); MEAN CORPUSCULAR HEMOGLOBIN 31 pg (27-31); MEAN CORPUSCULAR HGB CONC 34 % (32-36); MEAN CORPUSCULAR VOLUME 93 fL (79.0-98.0); MONOCYTES # (AUTO) 0.9 K/uL (0.0-1.0); MONOCYTES % (AUTO) 14.9 % (1.7-9.3); NEUTROPHILS # (AUTO) 2.9 K/uL (1.8-7.7); NEUTROPHILS % (AUTO) 48.2 % (40.0-70.0); PLATELET COUNT (AUTO) 106 K/uL (130-430); RED BLOOD CELL COUNT(AUTO) 4.11 MIL/uL (4.2-6.2); RED CELL DISTRIBUTION WIDTH 17.6 % (9.0-15.0); WHITE BLOOD COUNT (AUTO) 6.1 K/uL (4.8-10.8)
[2023-10-26 05:22] LABS: ANION GAP 2 (5-15); CALCIUM 9.7 mg/dL (8.4-11.0); CARBON DIOXIDE 34 mmol/L (23-29); CHLORIDE 109 mmol/L (98-107); CREATININE 0.81 mg/dL (0.55-1.30); GLUCOSE 68 mg/dL (74-106); SODIUM SERUM 145 mmol/L (136-145); UREA NITROGEN, BLOOD 8 mg/dL (8-21)
== END 2023-10-26 18:20 | disposition short-term general hospital (02) | DRG 871 ==
LOC: SED 14:29 → STU 19:19
PROVIDERS: ADMIT General Practice; ATTEND General Practice
DX: A41.9 Sepsis, unspecified organism (principal); G93.41 Metabolic encephalopathy; J69.0 Pneumonitis due to inhalation of food and vomit; J96.01 Acute respiratory failure with hypoxia; J15.9 Unspecified bacterial pneumonia; N39.0 Urinary tract infection, site not specified; E86.0 Dehydration; Z66 Do not resuscitate; I48.0 Paroxysmal atrial fibrillation; F60.3 Borderline personality disorder; D69.6 Thrombocytopenia, unspecified; I10 Essential (primary) hypertension; F31.9 Bipolar disorder, unspecified; E11.649 Type 2 diabetes mellitus with hypoglycemia without coma; E03.9 Hypothyroidism, unspecified; Z90.710 Acquired absence of both cervix and uterus; Z79.899 Other long term (current) drug therapy
CPT/HCPCS: 36415; 36600; 70450-TC; 71045; 71250-TC; 80048; 80076; 80164; 81000; 81001; 81015; 82533; 82803; 82948; 83037; 83605; 83690; 83735; 83880; 84439; 84443; 84484; 85025; 85610; 85730; 87040; 87086; 87186; 92610-GN; 93005; 93306; 94070; 94640; 94760; 96365; 96375; 97110-GP; 97530-GP; 99285; G0378; J0696; J1644; J1956; J2543; J3480; J3490; J7050; J7060